=== PATIENT | female | born 1985 | race Caucasian/White ===

== ENCOUNTER 2021-01-24 04:25 | Emergency (ER) | payer SELFPAY ==
[~2021-01-24] VITALS: Ht 167.6 cm; Wt 91.0 kg
--- NOTE | 2021-01-24 04:50 | NUR ---
pt present to the ed with fevers and chills. pt had a DNC on 12/30/20 for a molar . pt had awoken a day ago with cramping and bleeding. pt had gone to [facility] to be checked out, pt received antibiotics. pt awoke today with fevers and chills. pt in gown, resting on gurney, and placed on continuous monitoring.
[2021-01-24] MEDS ORDERED: SODIUM CHLORIDE FLUSH 10ML SYR IVF ONE (05:30)
[2021-01-24 06:19] LABS: MICROSCOPIC AUTO
[2021-01-24 06:37] LABS: BASOPHILS % (AUTO) 0 % (0-1); EOSINOPHILS % (AUTO) 0 % (1-7); LYMPHOCYTES % (AUTO) 16 % (22-44); MEAN CORPUSCULAR HEMOGLOBIN 28.3 pg (27.0-34.8); MEAN CORPUSCULAR HGB CONC 34.6 g/dL (32.4-35.8); MEAN PLATELET VOLUME 7.6 fL (7.4-10.4); MONOCYTES % (AUTO) 6 % (2-9); NEUTROPHILS % (AUTO) 78 % (42-75); PLATELET COUNT 291 x10^3/uL (130-400); RED CELL DISTRIBUTION WIDTH 14.8 % (9.6-15.2)
[2021-01-24 06:43] LABS: ALANINE AMINOTRANSFERASE 23 U/L (12-78); ALBUMIN 3.5 g/dL (3.4-5.0); ANION GAP 6 mmol/L (5-15); CALCIUM 8.9 mg/dL (8.5-10.1); CHLORIDE 107 mmol/L (98-107); CREATININE 0.81 mg/dL (0.55-1.02)
--- NOTE | 2021-01-24 06:55 | NUR ---
GAVE REPORT TO HOLLI JORGENSEN
[2021-01-24 06:59] LABS: ALKALINE PHOSPHATASE 30 U/L (45-117); BILIRUBIN,TOTAL 0.3 mg/dL (0.2-1.0); TOTAL PROTEIN 7.2 g/dL (6.4-8.2)
[2021-01-24 08:18] VITALS: BP 102/56
[2021-01-24] MEDS ORDERED: SODIUM CHLORIDE 0.9% 1,000ML IVBOLUS ONE (08:30)
--- NOTE | 2021-01-24 09:38 | NUR ---
Patient given discharge instructions and they have confirmed that they understand the instructions. Patient ambulatory with steady gait. NAD, all questions answered appropriately, denies additional needs at this time. No personal belongings left in room after discharge.
== END 2021-01-24 09:35 | disposition home or self-care (01) ==
LOC: ED 07:54
DX: O02.0 Blighted ovum and nonhydatidiform mole (principal); N93.8 Other specified abnormal uterine and vaginal bleeding
CPT/HCPCS: 36415; 76856; 80053; 81001; 84702; 85025; 87086; 99284